=== PATIENT | female | born 2000 | race Caucasian/White ===

== ENCOUNTER 2020-01-12 05:57 | Inpatient (IN) ==
[2020-01-12] MEDS ORDERED: ACETAMINOPHEN 325 MG TABLET PO PRN ×2 (06:06→18:23)
[2020-01-12 06:26] LABS: Basophils % 0.3 % (0.0-0.8); Eosinophils # 0.1 10*3/uL (0.0-0.87); Eosinophils % 0.6 % (0.00-10.9); Hemoglobin 7.5 GM/DL (12.0-16.0); Immature Granulocytes % 0.3 %; Immature Granulocytes Absolute 0.03 #; Lymphocytes # 2.1 10*3/uL (1.4-4.0); Lymphocytes % 24.1 % (21.3-54.2); Mean Corpuscular HGB Conc 28.8 GM/DL (32-36); Mean Corpuscular Volume 73.7 FL (87-102); Mean Platelet Volume 10.6 FL (9.6-12.0); Monocytes % 6.2 % (1.7-12.7); NRBC # 0.03 10*3/uL; Neutrophils % 68.5 % (38.7-73.9); Platelet Count 365 T/CUMM (130-400); Red Blood Count 3.53 MC/CUMM (3.8-5.5); Red Cell Distribution Width 17.8 % (9.3-17.3); White Blood Count 8.7 T/CUMM (4-12)
[2020-01-12] MEDS ORDERED: OXYTOCIN/LR 20 UNIT/1,000 ML BAG IV SCH (06:30)
[2020-01-12] MEDS: LACTATED RINGERS 1,000 ML IV SCH ×2 (06:34→09:00)
[2020-01-12 06:56] LABS: Hypochromasia 1+
[2020-01-12 06:57] LABS: Microcytosis 1+; Ovalocytes Few; Platelet Estimate Normal; Polychromasia Slight; Tear Drop Cells Slight
[2020-01-12] MEDS ORDERED: hydrOXYzine HCL 25 MG/1 ML VIAL IM PRN (07:44)
[2020-01-12] MEDS ORDERED: FAMOTIDINE 20 MG/2 ML VIAL IV ONE (07:44)
[2020-01-12] MEDS ORDERED: diphenhydrAMINE 50 MG/1 ML VIAL IV PRN ×2 (07:44)
[2020-01-12] MEDS ORDERED: PROMETHAZINE 25 MG/1 ML VIAL IM PRN (07:44)
[2020-01-12] MEDS ORDERED: ePHEDrine 50 MG/ML VIAL IV PRN (07:44)
[2020-01-12] MEDS ORDERED: CITRIC ACID/SODIUM CITRATE 30 ML UDCUP PO ONE (07:44)
[2020-01-12] MEDS ORDERED: NALOXONE 0.4 MG/ML VIAL IV PRN (07:44)
[2020-01-12] MEDS ORDERED: fentaNYL 2 MCG/ROPIV 0.2% EPID 100 ML EPIDURAL SCH (08:00)
[2020-01-12] MEDS: BUTORPHANOL 2 MG/ML VIAL IV PRN ×2 (08:14→15:58)
[2020-01-12] MEDS: ONDANSETRON 4 MG/2 ML VIAL IV PRN ×2 (08:15→13:44)
[2020-01-12 11:08] LABS: Apearance,Urine CLEAR (Clear); Bilirubin,Urine Negative (Negative); Blood, Urine Negative (Negative); Glucose,Urine (UA) Negative (Negative); Ketones,Urine Negative (Negative); Nitrite,Urine Negative (Negative); Protein,Urine Negative; Urine Color Straw (Yellow); Urine Specific Gravity 1.003 (1.001-1.035); Urine Urobilinogen < 2.0 EU/DL (0.2-1.0); WBC,Urine <1 /HPF (0-6)
[2020-01-12] MEDS ORDERED: METHYLERGONOVINE 0.2 MG/1 ML AMP ONE (13:02)
[2020-01-12] MEDS ORDERED: TRANEXAMIC ACID 1,000 MG/10 ML VIAL ONE (13:02)
[2020-01-12] MEDS ORDERED: miSOPROStoL 200 MCG TABLET ONE (13:02)
[2020-01-12] MEDS ORDERED: LIDOCAINE 1% 50 ML VIAL ONE (13:03)
[2020-01-12] MEDS ORDERED: SODIUM CHLORIDE 0.9% 0 ML IV ONE (13:03)
[2020-01-12 15:59] LABS: Cord Venous Blood HCO3 22.5 MMOL/L; Cord Venous Blood PCO2 40.9 MMHG
[2020-01-12] MEDS ORDERED: WITCH HAZEL PADS 100/JAR TOP PRN (18:23)
[2020-01-12] MEDS ORDERED: OXYTOCIN/LR 20 UNIT/1,000 ML BAG IV ONE (18:23)
[2020-01-12] MEDS ORDERED: MEASLES/MUMPS/RUBELLA VACCINE 0.5 ML VIAL SUBCUT ONE (18:23)
[2020-01-12] MEDS ORDERED: BISACODYL 10 MG SUPP RECTAL PRN (18:23)
[2020-01-12] MEDS ORDERED: DIPH/TET/ACEL PERT BOOSTER VACCINE 0.5 ML VIAL IM ONE (18:23)
[2020-01-12] MEDS ORDERED: oxyCODONE/ACETAMINOPHEN 5-325 MG TABLET PO PRN (18:23)
[2020-01-12] MEDS ORDERED: BENZOCAINE 20%/MENTHOL 0.5% SPRAY 56 GM CAN TOP PRN (18:23)
[2020-01-12] MEDS ORDERED: HYDROCORTISONE 2.5% RECTAL CREAM 30 GM TUBE TOP PRN (18:23)
[2020-01-12] MEDS ORDERED: LANOLIN 50% CREAM 0.3 OZ TUBE TOP PRN (18:23)
[2020-01-12] MEDS ORDERED: RHO(D) IMMUNE GLOBULIN 300 MCG SYRINGE IM ONE (18:23)
[2020-01-12] MEDS: IBUPROFEN 800 MG TABLET PO PRN (18:25)
[2020-01-12] MEDS ORDERED: IBUPROFEN 800 MG TABLET ONE (18:27)
[2020-01-12] MEDS: DOCUSATE SODIUM 100 MG CAPSULE PO SCH ×2 (19:24→20:58)
[2020-01-12 22:01] LABS: Hematocrit 21.9 VOL% (35.7-47.0)
[2020-01-12 22:06] LABS: Hemoglobin 6.3 GM/DL (12.0-16.0)
[2020-01-12] MEDS ORDERED: SODIUM CHLORIDE 0.9% 1,000 ML IV PRN ×2 (22:12→22:17)
[2020-01-13] MEDS: IBUPROFEN 800 MG TABLET PO PRN (02:32)
[2020-01-13] MEDS: oxyCODONE/ACETAMINOPHEN 5-325 MG TABLET PO PRN (03:38)
[2020-01-13] MEDS: DOCUSATE SODIUM 100 MG CAPSULE PO SCH ×2 (08:45→21:55)
[2020-01-13] MEDS: FERROUS SULFATE 325 MG TABLET PO SCH ×2 (08:45→21:55)
[2020-01-13 09:17] LABS: Basophils # 0.1 10*3/uL (0.0-0.2); Basophils % 0.6 % (0.0-0.8); Eosinophils % 0.3 % (0.00-10.9); Hematocrit 25.3 VOL% (35.7-47.0); Hemoglobin 7.8 GM/DL (12.0-16.0); Immature Granulocytes % 0.5 %; Immature Granulocytes Absolute 0.06 #; Lymphocytes # 2.3 10*3/uL (1.4-4.0); Lymphocytes % 20.8 % (21.3-54.2); Mean Corpuscular HGB Conc 30.8 GM/DL (32-36); Mean Corpuscular Volume 75.5 FL (87-102); Mean Platelet Volume 10.4 FL (9.6-12.0); NRBC # 0.02 10*3/uL; Neutrophils % 70.8 % (38.7-73.9); Platelet Count 271 T/CUMM (130-400); Red Blood Count 3.35 MC/CUMM (3.8-5.5); Red Cell Distribution Width 17.8 % (9.3-17.3); White Blood Count 11.1 T/CUMM (4-12)
[2020-01-13] MEDS ORDERED: ALUMINUM/MAGNES/SIMETH MAX STR 30 ML UDCUP PO PRN (12:41)
[2020-01-13] MEDS: FAMOTIDINE 20 MG TABLET PO SCH (15:58)
[2020-01-14] MEDS: oxyCODONE/ACETAMINOPHEN 5-325 MG TABLET PO PRN (01:05)
[2020-01-14] MEDS: IBUPROFEN 800 MG TABLET PO PRN (01:05)
[2020-01-14] MEDS: FAMOTIDINE 20 MG TABLET PO SCH (09:47)
[2020-01-14] MEDS: FERROUS SULFATE 325 MG TABLET PO SCH (09:47)
[2020-01-14] MEDS: DOCUSATE SODIUM 100 MG CAPSULE PO SCH (09:47)
[2020-01-14 15:25] VITALS: BP 126/78
== END 2020-01-14 14:08 | disposition home or self-care (01) | DRG 560 ==
LOC: N.LDOUT 05:57 → N.LD 06:00 → N.OB 18:22
PROVIDERS: ADMIT Obstetrics & Gynecology; ATTEND Obstetrics & Gynecology